=== PATIENT | male | born 1955 | race Caucasian/White ===

== ENCOUNTER → 2018-03-07 | Outpatient (CLI) | payer BC ==
[~2018-03-07] MED LIST: CLOPIDOGREL BISULFATE 75 MG TABLET ONE; DIAZEPAM 10 MG TABLET. ONE; EPTIFIBATIDE BOLUS 2,000 MCG/ML 10ML VIAL. IV ONE; HEPARIN for ARTERIAL LINE 1,500 ML ONE; HEPARIN for SUB-Q USE 5,000 UNIT/ML VIAL. SQ ONE; HYDROcodone/APAP 5/325MG 1 TAB TABLET ONE; IODIXANOL 270 MG/ML 100 ML VIAL. ONE; IOHEXOL 350 MG/ML 100 ML VIAL. ONE; IV NORMAL SALINE 500ML BAG 500 ML ONE; LIDOCAINE 1%/EPI 1:100,000 20 ML VIAL. ONE; MIDAZOLAM HCL/PF 2 MG/2 ML VIAL. ONE; fentaNYL PF VIAL 100 MCG/2 ML VIAL ONE; hydrALAZINE 20 MG/ML VIAL. ONE
--- NOTE | 2018-03-07 17:08 | PCVCINTER ---
APPROVED REPORT Study performed: 03/07/2018 14:48:17 Patient Details Patient Status: Out-Patient Room #: 3 The patient is a 63 year-old Male Event Personnel Teresa Monahan MD, Nestor Morin RT(R), Axel Vivas RT(R)(), Damon Cole RN, Hai Hernandez RN Risk Factors Arterial HypertensionDysplipidemia (Type: 1), Family HistoryPeripheral Vascular Disease, Chronic Lung DiseaseHypercholesterolemia, Diabetes (Control: Oral)Last Creatanine 0.6Tobacco History (Current/Recent(w/in 1 year)) Previous Procedures/Diagnoses Previous PCI Procedure Narrative A 6 sheath was inserted into the left femoral artery. Coronary angiography was performed using coronary diagnostic catheters. The right coronary system was accessed and visualized with a JR4 catheter. The left coronary system was accessed and visualized with a JL4 catheter. The left ventricle was accessed and visualized with a Angled Pigtail catheter. Left ventricular/Aortic Valve gradient assessed via catheter pullback. Left ventriculogram was performed in HOOD projection. Closure device was deployed with a 6 Fr FISH. Hemostasis was obtained with manual pressure following sheath removal without any complications. The patient tolerated the procedure well and there were no complications associated with the procedure. There was no hematoma. Coronary Angiography The patient's coronary anatomy is right dominant. Diagnostic Cath Left Main30% left main stenosis LADLong tubular 50% proximal LAD stenosis Diagonal 1Small, diffuse, severely diseased Diagonal 2Moderate in size, diffusely diseased CircumflexModerate 50-60% proximal circumflex just after the first marginal branch [id number] proximal and ostial first OM branch stenosis. This is a small calibered vessel OM290% first OM branch just proximal to a previously placed stent stenosis [id number] marginal branch is small and angiographically normal Right Adfaifla16% osteal RCA stenosis 75% mid RCA stenosis R PDAmoderate size, mild plaquing RPLVlong 75% PL branch stenosis Left Ventriculography The left ventricle is normal in size with normal contractility. The left ventricular ejection fraction is estimated to be 60%. Left ventricular wall motion abnormalities are not present. There is no mitral insufficiency. Hemodynamics The aortic pressure is 148/72 mmHg with a mean of 92 mmHg. The left ventricular pressure is 104/0 mmHg with a mean of 3 mmHg. Conclusion 1. Normal global left ventricular systolic function 2. 30% LM stenosis 3. Moderate proximal intrastent LAD stenosis 4. Severe circumflex disease as detailed above 5. Ostial, mid, and distal RCA disease. Rt dominant Recommendations Smoking Cessation Aggressive Medical Therapy
--- NOTE | 2018-03-07 17:33 | PCVCINTER ---
EXAM: 1. AORTOGRAM AND BILATERAL LOWER EXTREMITY RUNOFF ANGIOGRAM 2. BILATERAL RENAL ANGIOGRAPHY 3. RIGHT SUPERFICIAL FEMORAL ARTERY AND UPPER POPLITEAL ARTERY ATHERECTOMY AND STENT PLACEMENT. 4. SECONDARY THROMBECTOMY RIGHT SUPERFICIAL FEMORAL ARTERY. 5. DRUG COATED BALLOON ANGIOPLASTY RIGHT SUPERFICIAL FEMORAL ARTERY AND UPPER POPLITEAL ARTERY. INDICATION: Peripheral arterial disease. Coronary artery disease. Rest pain right foot. Hypertension. Renal atherosclerosis. No prior catheter based angiographic study is available. A full diagnostic angiogram study is performed today and the decision to intervene is based on this diagnostic study. PROCEDURE: Procedure and risks of angiography intervention is appropriate including limb loss stroke and were discussed with the patient's family and consent obtained. The patient's left groin was prepped in the normal sterile fashion. IV conscious sedation was used throughout procedure with appropriate monitoring from 1:15 PM through 2:45 PM. Ultrasound was used to interrogate the left groin and showed the left common femoral artery to be patent. A permanent spot film was obtained. Under ultrasound guidance access into the left common femoral artery was obtained and a 5 Yoruba sheath was placed. Through this a 5 Yoruba flush catheter was placed into the abdominal aorta at the level of the renal arteries and AP aortogram was performed. Catheter was positioned at the aortic bifurcation and both oblique views of the pelvis were obtained. Catheter was positioned into the left external iliac artery and left leg runoff angiography was performed. Catheter was exchanged for a visceral catheter was placed into the right renal arteries and right renal angiograms obtained. Catheter was placed into the the left renal arteries and left renal angiograms were obtained. Catheter was advanced to the level of the right external iliac artery and right leg runoff angiography was obtained. Patient was given 4500 units of heparin. A 6 Yoruba crossover sheath was placed via the left groin to the level of the right common femoral artery. Atherectomy of the right superficial femoral artery and upper popliteal artery was performed with 2.0 mm CyberSponse laser atherectomy catheter in the standard fashion. Following atherectomy small areas of thrombus were observed and because of this secondary thrombectomy throughout the right superficial femoral artery was carried out with mechanical suction thrombectomy catheter in the standard fashion. Minimal debris was removed. Stent placement across the areas of high-grade stenosis in the right superficial femoral artery and upper popliteal artery was carried out with a 6 x 150, 6 x 150, and 6 x 80 Smart control stents with subsequent dilatation to 4.0 mm. Following this drug coated balloon angioplasty of the right superficial femoral artery and upper popliteal artery was carried out with a 4 x 120, 4 x 120, 4 x 120, and 4 x 40 CyberSponse Herlinda Dread CELL CHANGER catheters. Follow-up angiogram was performed. Catheters and wires removed. Dr. Moore joined the procedure and he performed coronary angiography. Please see his separate dictation. Sheath was removed and hemostasis obtained using the FISH device. No immediate complications. FINDINGS: Aortogram: There is one right and one left renal artery. Mild plaque infrarenal abdominal aorta without significant stenosis. Pelvis: Mild plaque right and left common iliac arteries without significant stenosis. Mild stenosis both internal iliac arteries. The right and left external iliac arteries show satisfactory patency throughout. Mild plaque right common femoral artery without significant stenosis. Profunda femoral arteries patent. Extensive plaque throughout the left common femoral artery with 90% stenosis in the upper common femoral artery. Mild stenosis left profunda femoral artery. Right renal artery: Minimal plaque proximal vessel does not cause significant stenosis. Left renal artery: Minimal plaque proximal vessel does not cause significant stenosis. Right leg: Subtotal occlusion throughout the midportion of the [place] superficial femoral artery with multiple high-grade stenoses proximally and segmental occlusion of the distal superficial femoral artery and upper popliteal artery. Mid and lower popliteal artery show adequate patency. Moderate stenosis proximal posterior tibial artery which otherwise shows good patency into small plantar arteries. Peroneal artery is patent although somewhat small. The anterior tibial artery shows mild diffuse stenosis proximally but then shows adequate patency into the dorsalis pedis. Left leg: Long segment occlusion throughout the [place] superficial femoral artery with refilling of the distal most vessel. Moderate plaque throughout the popliteal artery without flow-limiting stenosis. Mild stenosis proximal posterior tibial artery which otherwise shows good patency into small plantar arteries. Peroneal artery is small but patent throughout. The anterior tibial artery shows mild to moderate stenosis in its midportion but otherwise show satisfactory patency into the dorsalis pedis. Right superficial femoral artery and upper popliteal artery: Following procedure as above good patency has been restored throughout. IMPRESSION: Right superficial femoral artery stenoses and occlusion and right upper popliteal artery occlusion were treated as above with good patency restored. 90% stenosis upper left common femoral artery with long segment occlusion throughout the left superficial femoral artery. I'll follow-up with the patient 1-2 months regarding his symptoms. If significant symptoms in the left leg develop treatment options will include left superficial femoral artery recanalization and stent placement followed by left common femoral artery endarterectomy versus left femoral-popliteal artery bypass graft. LOC:[id number]
== END | disposition home or self-care (01) ==
LOC: PCVCINTER 12:52
PROVIDERS: ATTEND Nuclear Medicine Nuclear Cardiology
DX: I70.223 Atherosclerosis of native arteries of extremities with rest pain, bilateral legs (principal); I70.1 Atherosclerosis of renal artery; I70.0 Atherosclerosis of aorta; I25.10 Atherosclerotic heart disease of native coronary artery without angina pectoris; I10 Essential (primary) hypertension; E78.00 Pure hypercholesterolemia, unspecified; J44.9 Chronic obstructive pulmonary disease, unspecified; E11.9 Type 2 diabetes mellitus without complications; Z86.73 Personal history of transient ischemic attack (TIA), and cerebral infarction without residual deficits; Z95.0 Presence of cardiac pacemaker; Z83.3 Family history of diabetes mellitus; Z82.49 Family history of ischemic heart disease and other diseases of the circulatory system; F17.210 Nicotine dependence, cigarettes, uncomplicated; Z79.82 Long term (current) use of aspirin; Z79.899 Other long term (current) drug therapy; Z79.84 Long term (current) use of oral hypoglycemic drugs
CPT/HCPCS: 36252; 37186; 37227; 75716; 76937; 93458; 99152; 99153; C1725; C1751; C1757; C1760; C1769; C1876; C1885; C1887; C1894; C2623; J0360; J0690; J1327; J1644; J2250; J3010; J3490; J7040; Q9967

== ENCOUNTER → 2018-04-03 | Outpatient (CLI) | payer BC ==
--- NOTE | 2018-04-03 12:01 | PCVCIMAG ---
EXAM: BILATERAL CAROTID DUPLEX INDICATION: Carotid Occlusive Disease. FINDINGS: Doppler Measurements (centimeters per second): RIGHT: Peak CCA-85, Peak ECA-107, Diastolic ICA-24, Peak ICA-77, ICA/CCA Ratio-0.9. LEFT: Peak CCA-92, Peak ECA-152, Diastolic ICA-27, Peak ICA-80, ICA/CCA Ratio-0.9. RIGHT CAROTID: The carotid bulb has mild plaque. The proximal internal carotid artery shows <40% stenosis. The common carotid artery shows no significant stenosis. The external carotid artery shows no significant stenosis. LEFT CAROTID: The carotid bulb has moderate plaque. The proximal internal carotid artery shows <40% stenosis. The common carotid artery shows no significant stenosis. The external carotid artery shows no significant stenosis. Antegrade flow in both vertebral arteries. IMPRESSION: <40% stenosis of the right internal carotid artery with mild plaque. <40% stenosis of the left internal carotid artery with moderate plaque. LOC:[place] [id number]
--- NOTE | 2018-04-05 13:01 | PCVCIMAG ---
APPROVED REPORT Study performed: 04/03/2018 08:52:57 EXAM: Comprehensive 2D, Doppler, and color-flow Echocardiogram Patient Location: Echo lab Room #: 2Status: routine BSA: 2.05 HR: 62 bpmBP: 152/76 mmHg Rhythm: Pacemaker Other Information Study Quality: Technically Difficult Risk Factors: Cardiac Risk Factors: HTN, DM, Smoking, FHX of CAD Indications Diabetes Pacemaker CAD Hypertension/HDD S/P stent 2D Dimensions IVSd: 12.84 (7-11mm)LVOT Diam: 20.95 (18-24mm) LVDd: 48.87 mm PWd: 13.28 (7-11mm)Ascending Ao: 32.62 (22-36mm) LVDs: 36.62 (25-40mm) Left Atrium: 29.23 (27-40mm) Aortic Root: 29.56 mm LV Single Plane 4CH: 61.53 % LV Single Plane 2CH: 69.38 % Biplane EF: 66.5 % Volumes Left Atrial Volume (Systole) Single Plane 4CH: 56.18 mLSingle Plane 2CH: 64.56 mL Biplane LA Volume: 62.00 mLLA ESV Index: 30.00 mL/m2 Aortic Valve AoV Peak Adalberto.: 2.60 m/s AO Peak Gr.: 27.85 mmHgLVOT Max P.33 mmHg AO Mean Gr.: 12.74 mmHgLVOT Mean P.79 mmHg AO V2 Mean: 1.68 m/sLVOT Max V: 1.02 m/s AO V2 VTI: 49.98 cmLVOT Mean V: 0.59 m/s MESSI (VTI): 1.49 [id number] V1 VTI: 21.61 cm MESSI Vmax: 1.35 cm2 SV (LVOT): 74.49 mL Mitral Valve E/A Ratio: 1.0 MV Decel. Time: 238.22 ms MV E Max Adalberto.: 0.75 m/s MV A Adalberto.: 0.72 m/s TDI E/Lateral E': 12.50E/Medial E': 18.75 Medial E' Adalberto.: 0.04 m/s Lateral E' Adalberto.: 0.06 m/s Pulmonary Valve PV Peak Adalberto.: 0.95 m/sPV Peak Gr.: 3.61 mmHg Tricuspid Valve TR Peak Adalberto.: 2.95 m/s TR Peak Gr.: 34.69 mmHg TV Vmax: 0.49 m/sPA Pressure: 42.00 mmHg Left Ventricle The left ventricle is normal size. There is normal LV segmental wall motion. Mild concentric left ventricular hypertrophy. Left ventricular systolic function is normal. Discordant septal motion probably from RV pacing. LVEF is 65-70%. The left ventricular diastolic function is normal. Right Ventricle The right ventricle is normal size. The right ventricular systolic function is normal. Atria The left atrium size is normal. The right atrium size is normal. Aortic Valve Aortic valve is trileaflet, mild-moderately calcified, mildly stenotic. No aortic regurgitation is present. Calculated aortic valve area is 1.5cm2 (Peak pressure gradient of 27 mmHg, mean pressure gradient of 13 mmHg). Mitral Valve Mild-moderate mitral annular calcification Mitral regurgitation. No evidence of mitral valve stenosis. Tricuspid Valve The tricuspid valve is normal in structure. Mild tricuspid regurgitation with a PA pressure of 40 mmHg. Pulmonic Valve The pulmonary valve is normal in structure. There is no pulmonic valvular regurgitation. Great Vessels The aortic root is normal in size. Aortic arch is normal in caliber. The ascending aorta is normal in size. IVC is normal in size and collapses >50% with inspiration. Pericardium There is no pericardial effusion. There is no pleural effusion. <Conclusion> Left ventricular systolic function is normal. Discordant septal motion probably from RV pacing. There is normal LV segmental wall motion. Aortic valve is trileaflet, mild-moderately calcified, mildly stenotic. No insufficiency. Calculated aortic valve area is 1.5cm2 (Peak pressure gradient of 27 mmHg, mean pressure gradient of 13 mmHg). Mild-moderate mitral annular calcification. Mitral regurgitation. Mild tricuspid regurgitation with a pulmonary artery pressure of 40 mmHg. There is no pericardial effusion.
== END | disposition home or self-care (01) ==
LOC: PCVCIMAG 08:59
PROVIDERS: ATTEND Internal Medicine
DX: Z01.818 Encounter for other preprocedural examination (principal); I08.1 Rheumatic disorders of both mitral and tricuspid valves; I65.23 Occlusion and stenosis of bilateral carotid arteries; E11.9 Type 2 diabetes mellitus without complications; F17.200 Nicotine dependence, unspecified, uncomplicated; E78.5 Hyperlipidemia, unspecified; I10 Essential (primary) hypertension; Z86.73 Personal history of transient ischemic attack (TIA), and cerebral infarction without residual deficits; Z82.49 Family history of ischemic heart disease and other diseases of the circulatory system
CPT/HCPCS: 93306; 93880

== ENCOUNTER → 2018-09-23 | Outpatient (CLI) | payer BC ==
--- NOTE | 2018-09-23 17:46 | PCVCIMAG ---
EXAM: BILATERAL LOWER EXTREMITY ARTERIAL DUPLEX INDICATION: Peripheral Arterial Disease. Leg pain. FINDINGS: Right Leg: Common femoral and profunda femoral arteries are patent. Interval occlusion of the superficial femoral artery within prior stents. Refilling at the level of the mid popliteal artery. Anterior tibial and peroneal arteries are patent. Segmental occlusion upper posterior tibial artery. Left Le% stenosis mid/upper common femoral artery as seen on prior February 2018 angiogram. Profunda femoral artery is patent. Subtotal occlusion throughout the mid superficial femoral artery. Popliteal artery is patent. Anterior tibial, peroneal, and posterior tibial arteries are patent. IMPRESSION: Interval occlusion of the right superficial femoral artery within prior stents. Segmental occlusion upper right posterior tibial artery. 95% stenosis mid/upper common femoral artery as seen on prior February 2018 angiogram. Subtotal occlusion throughout the mid left superficial femoral artery as seen on prior angiogram. LOC:[id number]
== END | disposition home or self-care (01) ==
LOC: PCVCIMAG 10:36
PROVIDERS: ATTEND Nuclear Medicine Nuclear Cardiology
DX: I70.201 Unspecified atherosclerosis of native arteries of extremities, right leg (principal); I25.10 Atherosclerotic heart disease of native coronary artery without angina pectoris; E11.9 Type 2 diabetes mellitus without complications; F17.200 Nicotine dependence, unspecified, uncomplicated
CPT/HCPCS: 93925